=== PATIENT | female | born 1995 | race Caucasian/White ===

== ENCOUNTER 2016-07-03 04:57 | Inpatient (IN) | payer BC ==
[~2016-07-03] VITALS: Ht 162.6 cm; Wt 53.9 kg
[2016-07-03] VITALS (20 sets, daily range): BP systolic 100–129; BP diastolic 61–91
[~2016-07-03 04:57] MED LIST: ATARAX,VISTARIL50 MG PO; PREDNISONE50 MG PO; ZANTAC150 MG PO
[2016-07-03 06:18] LABS: BASOPHIL COUNT 0.1 K/uL (0-0.1); EOSINOPHIL COUNT 0.1 K/uL (0-0.3); HEMATOCRIT 35.6 % (36.0-46.0); IMMATURE GRANULOCYTE (%) 1.6 % (0.0-0.7); IMMATURE GRANULOCYTE COUNT 0.2 K/uL; INSTRUMENT ABS NEUTROPHIL CT 6.5 K/uL; LYMPHOCYTE COUNT 1.6 K/uL (1.0-2.8); MCH 31.3 PG (29.0-34.0); MCHC 33.1 G/DL (30.0-36.0); MCV 94.4 FL (83-99); MONOCYTE (%) 10.2 % (3-12); NEUTROPHIL (%) 69.3 % (45-76); NEUTROPHIL COUNT 6.5 K/uL (1.8-6.4); PLATELET COUNT 203 K/uL (156-360); RBC DIS.WIDTH-SD 41.5 % (39-53); RED BLOOD COUNT 3.77 M/uL (3.80-5.20); WHITE BLOOD COUNT 9.4 K/uL (4.1-10.2)
[2016-07-03] MEDS ORDERED: PRENATAL TABLE1 EAC3 PO (06:56)
[2016-07-03] MEDS ORDERED: PROTONIX40 MG PO (06:57)
[2016-07-03 07:36] LABS: DRSB INTERNAL CONTROL PASS; PROBE CHECK PASS; SPECIMEN PROCESSING CONTROL PASS
[2016-07-03 09:12] LABS: AMPHETAMINES QUANT VALUE 0 NG/ML; BARBITUATES QUANT VALUE 0 NG/ML; BENZODIAZEPINES QUANT VALUE 0 NG/ML; BENZODIAZEPINES, URINE SCREEN Negative (200 ng/mL); MARIJUANA QUANT VALUE 0 NG/ML; OPIATES QUANTITATIVE VALUE 0 NG/ML; PHENCYCLIDINE QUANT VALUE 0 NG/ML
[2016-07-04 07:16] LABS: BASOPHIL COUNT 0.1 K/uL (0-0.1); EOSINOPHIL (%) 0.4 % (0-5); EOSINOPHIL COUNT 0.1 K/uL (0-0.3); HEMATOCRIT 28.9 % (36.0-46.0); IMMATURE GRANULOCYTE (%) 0.9 % (0.0-0.7); IMMATURE GRANULOCYTE COUNT 0.1 K/uL; INSTRUMENT ABS NEUTROPHIL CT 10.3 K/uL; LYMPHOCYTE COUNT 1.4 K/uL (1.0-2.8); MCH 31.5 PG (29.0-34.0); MCHC 33.6 G/DL (30.0-36.0); MCV 93.8 FL (83-99); MEAN PLAT.VOLUME 11.3 uM^3 (9.5-12.4); MONOCYTE (%) 7.7 % (3-12); NEUTROPHIL (%) 79.9 % (45-76); NEUTROPHIL COUNT 10.3 K/uL (1.8-6.4); PLATELET COUNT 203 K/uL (156-360); RBC DIS.WIDTH-SD 40.7 % (39-53); RED BLOOD COUNT 3.08 M/uL (3.80-5.20)
[2016-07-04 07:20] LABS: WHITE BLOOD COUNT 12.9 K/uL (4.1-10.2)
[2016-07-04 07:50] VITALS: BP 114/76
[2016-07-04 14:41] VITALS: BP 139/68
[2016-07-04 22:49] VITALS: BP 103/67
[2016-07-05 07:56] VITALS: BP 107/71
[2016-07-05] MEDS ORDERED: CAMILA0.35 MG PO (11:33)
[2016-07-05] MEDS ORDERED: FEOSOL325 MG PO (11:33)
== END 2016-07-05 12:22 | disposition home or self-care (01) | DRG 775 ==
LOC: LDRP-OP 04:57 → 2WEST 04:58
PROVIDERS: Advanced Practice Midwife
DX: O60.14X1 Preterm labor third trimester with preterm delivery third trimester, fetus 1 (principal); D62 Acute posthemorrhagic anemia; O62.0 Primary inadequate contractions; O70.0 First degree perineal laceration during delivery; O99.02 Anemia complicating childbirth; D50.9 Iron deficiency anemia, unspecified; Z3A.36 36 weeks gestation of pregnancy; Z37.0 Single live birth
CPT/HCPCS: 80306 90; 85025; 87081; 87086; 87653; J2540; J7120